=== PATIENT | male | born 1965 | race Caucasian/White ===

== ENCOUNTER 2016-12-19 15:57 | Emergency (ER) | payer BC ==
--- NOTE | 2016-12-19 16:09 | EDM.PDOC ---
ED HPI GENERAL MEDICAL PROBLEM - General Chief Complaint: Abdominal Pain Stated Complaint: ABDOMINAL PAIN Time Seen by Provider: 12/19/16 16:00 Source of Information: Reports: Patient, Family History Limitations: Reports: No Limitations - History of Present Illness Onset: Sudden Duration: Hour(s): (Within the past hour) Location: Reports: Head, Upper Extremity, Left, Upper Extremity, Right, Lower Extremity, Left Severity: Mild Associated Symptoms: Reports: Other (Headache). Denies: Chest Pain, Fever/ Chills, Malaise, Nausea/Vomiting, Shortness of Breath - Related Data Allergies Allergy/AdvReac Type Severity Reaction Status Date / Time adhesive tape Allergy Rash Verified 01/06/16 04:50 latex Allergy Rash Verified 12/07/14 07:47 Home Meds: Home Meds Hydrochlorothiazide 25 mg PO DAILY 12/05/14 [History] Aspirin 325 mg PO DAILY 10/03/15 [History] atorvaSTATin [Lipitor] 10 mg PO BEDTIME 01/06/16 [History] Past Medical History HEENT History: Reports: Impaired Vision Cardiovascular History: Reports: High Cholesterol, Hypertension Musculoskeletal History: Reports: Arthritis, Other (See Below) Other Musculoskeletal History: ruptured disks in lumbar - Infectious Disease History Infectious Disease History: Reports: Chicken Pox - Past Surgical History HEENT Surgical History: Reports: LASIK GI Surgical History: Reports: Colonoscopy Social & Family History - Tobacco Use Smoking Status *Q: Former Smoker Years of Tobacco use: 24 Used Tobacco, but Quit: Yes Month Tobacco Last Used: 2008 Second Hand Smoke Exposure: No - Recreational Drug Use Recreational Drug Use: No ED ROS GENERAL - Review of Systems Review Of Systems: See Below Constitutional: Denies: Fever, Chills, Malaise HEENT: Denies: Vision Change Respiratory: Denies: Shortness of Breath, Cough Cardiovascular: Denies: Chest Pain Endocrine: Denies: Fatigue GI/Abdominal: Denies: Abdominal Pain, Nausea, Vomiting Musculoskeletal: Reports: Hand Pain, Leg Pain Skin: Reports: Other (Superficial abrasions on her hands) Neurological: Reports: Headache. Denies: Confusion, Dizziness, Tingling, Difficulty Walking, Weakness Psychiatric: Reports: No Symptoms Departure - Discharge Information Referrals: Jennifer Tucker PA [Primary Care Provider] -
[2016-12-19 16:10] VITALS: BP 151/88
--- NOTE | 2016-12-19 16:32 | EDM.PDOC ---
ED HPI GENERAL MEDICAL PROBLEM - General Chief Complaint: Abdominal Pain Stated Complaint: ABDOMINAL PAIN Time Seen by Provider: 12/19/16 16:00 Source of Information: Reports: Patient History Limitations: Reports: No Limitations - History of Present Illness INITIAL COMMENTS - FREE TEXT/NARRATIVE: Andrea is a 51 year old male who presents to the ED today with c/o LLQ pain since last night. He reports frequent soft stool since that time. He denies any hematochezia, nausea, vomiting or fever. Patient has had diverticulitis in the past, last episode several months ago per patient, states this feels the same. Duration: Day(s): (1) left flank Pain Score (Numeric/FACES): 5 - Related Data Allergies Allergy/AdvReac Type Severity Reaction Status Date / Time adhesive tape Allergy Rash Verified 01/06/16 04:50 latex Allergy Rash Verified 12/07/14 07:47 Home Meds: Home Meds Hydrochlorothiazide 25 mg PO DAILY 12/05/14 [History] Aspirin 325 mg PO ASDIRECTED 10/03/15 [History] atorvaSTATin [Lipitor] 10 mg PO BEDTIME 01/06/16 [History] Past Medical History HEENT History: Reports: Impaired Vision Cardiovascular History: Reports: High Cholesterol, Hypertension Gastrointestinal History: Reports: Diverticulosis Musculoskeletal History: Reports: Arthritis, Other (See Below) Other Musculoskeletal History: ruptured disks in lumbar - Infectious Disease History Infectious Disease History: Reports: Chicken Pox - Past Surgical History HEENT Surgical History: Reports: LASIK GI Surgical History: Reports: Colonoscopy Social & Family History - Tobacco Use Smoking Status *Q: Former Smoker Years of Tobacco use: 24 Used Tobacco, but Quit: Yes Month Tobacco Last Used: 2008 Second Hand Smoke Exposure: No - Caffeine Use Caffeine Use: Reports: Coffee - Recreational Drug Use Recreational Drug Use: No ED ROS GENERAL - Review of Systems Review Of Systems: ROS reveals no pertinent complaints other than HPI. ED EXAM, GI/ABD - Physical Exam Exam: See Below Exam Limited By: No Limitations General Appearance: Alert, WD/WN, No Apparent Distress. No: Moderate Distress Head: Atraumatic Neck: Normal Inspection Respiratory/Chest: No Respiratory Distress, Lungs Clear Cardiovascular: Normal Peripheral Pulses, Regular Rate, Rhythm, No Murmur GI/Abdominal Exam: Normal Bowel Sounds, Soft, Tender (LLQ only) Rectal (Males) Exam: Deferred Extremities: Normal Inspection Neurological: Alert, Oriented, CN II-XII Intact Psychiatric: Normal Affect, Normal Mood Skin Exam: Warm, Dry, Intact Course - Vital Signs Last Recorded V/S: Last Vital Signs Temp 36.8 C 12/19/16 16:08 Pulse 85 12/19/16 16:08 Resp 15 12/19/16 16:08 BP 151/88 H 12/19/16 16:08 Pulse Ox 96 12/19/16 16:08 Andrea is a 52-year-old male who presents to the emergency department today with complaints of left lower quadrant pain since yesterday. Patient has a history of diverticulitis, he reports his symptoms are similar to prior episodes. Patient on exam here is tender to left lower quadrant, his remaining exam is unremarkable. Patient is well-hydrated and nontoxic-appearing. Blood work was evaluated, CBC returns with a mild leukocytosis and left shift, CMP is within normal limits, lipase is normal. The patient did not want anything for pain here including Tylenol/ibuprofen or offered. Leukocytosis was consistent with diverticulitis, I do not feel that imaging is warranted today given patient 's known diverticulitis history. I will start patient on Flagyl and ciprofloxacin and have him follow up with his primary care provider in the next 1-2 weeks. Reasons to return to the emergency department were discussed in detail, hydration was encouraged, patient can take ibuprofen/Tylenol for pain as needed . Patient was agreeable to plan of care and discharged in stable condition. - Orders/Labs/Meds Labs: Laboratory Tests 12/19/16 12/19/16 Range/Units 16:30 16:30 WBC 11.3 H (4.5-11.0) K/uL RBC 5.10 (4.30-5.90) M/uL Hgb 14.8 (12.0-15.0) g/dL Hct 43.5 (40.0-54.0) % MCV 85 (80-98) fL MCH 29 (27-31) pg MCHC 34 (32-36) % Plt Count 215 (150-400) K/uL Neut % (Auto) 69 H (36-66) % Lymph % (Auto) 16 L (24-44) % [place] % (Auto) 12 H (2-6) % Eos % (Auto) 3 (2-4) % Baso % (Auto) 1 (0-1) % Sodium 139 L (140-148) mmol/L Potassium 3.7 (3.6-5.2) mmol/L Chloride 104 (100-108) mmol/L Carbon Dioxide 30 (21-32) mmol/L Anion Gap 8.7 (5.0-14.0) mmol/L BUN 18 (7-18) mg/dL Creatinine 1.1 (0.8-1.3) mg/dL Est Cr Clr Drug Dosing 78.56 mL/min Estimated GFR (MDRD) > 60 (>60) Glucose 103 (74-106) mg/dL Calcium 8.9 (8.5-10.1) mg/dL Total Bilirubin 0.3 (0.2-1.0) mg/dL AST 20 (15-37) U/L ALT 37 (12-78) U/L Alkaline Phosphatase 92 (46-116) U/L Total Protein 7.3 (6.4-8.2) g/dL Albumin 3.4 (3.4-5.0) g/dL Globulin 3.9 H (2.3-3.5) g/dL Albumin/Globulin Ratio 0.9 L (1.2-2.2) Lipase 150 (73-393) U/L Departure - Departure Time of Disposition: 17:30 Disposition: Home, Self-Care 01 Condition: Good Clinical Impression: LLQ abdominal pain - Discharge Information Instructions: Diverticulitis Referrals: Jennifer Tucker PA [Primary Care Provider] - Forms: ED Department Discharge Additional Instructions: Andrea, please take antibiotics as prescribed. I would also recommend a probiotic, Culturelle, which will help prevent stomach upset and diarrhea secondary to the antibiotics you are taking. I would take this twice daily for the next 14 days. Please make sure you're staying well-hydrated, he can take ibuprofen or Tylenol for pain as needed. If he develops any worsening symptoms please return to the emergency department, otherwise plan to follow up with your primary doctor as previously scheduled.
== END 2016-12-19 17:14 | disposition home or self-care (01) ==
LOC: JP.ED 15:57
DX: R10.32 Left lower quadrant pain (principal); I10 Essential (primary) hypertension; E78.00 Pure hypercholesterolemia, unspecified; M19.90 Unspecified osteoarthritis, unspecified site; Z98.890 Other specified postprocedural states; Z87.891 Personal history of nicotine dependence; Z79.82 Long term (current) use of aspirin; Z79.899 Other long term (current) drug therapy; Z91.09 Other allergy status, other than to drugs and biological substances; Z91.040 Latex allergy status
CPT/HCPCS: 36415; 80053; 83690; 85025; 99284

== ENCOUNTER 2017-03-30 07:08 | Day surgery (SDC) | payer BC, OTHER ==
[~2017-03-30 07:08] MED LIST: Bupivacaine 0.5% 50 ML MDV ONE; Lidocaine 1% with EPINEPHrine 1:100,000 50 ML MDV ONE
[2017-03-30] MEDS ORDERED: Rocuronium 50 MG/5 ML Vial ONE (07:28)
[2017-03-30] MEDS ORDERED: Glycopyrrolate 0.2 MG/ML 5 ML MDV ONE (07:28)
[2017-03-30] MEDS ORDERED: Neostigmine Methylsulfate 1 MG/ML 5 ML Syringe ONE (07:28)
[2017-03-30] MEDS ORDERED: fentaNYL 250 MCG/5 ML SDV ONE ×2 (07:28→09:15)
[2017-03-30] MEDS ORDERED: Ondansetron 4 MG/2 ML SDV ONE (07:28)
[2017-03-30] MEDS ORDERED: Succinylcholine 200 MG/10 ML MDV ONE (07:28)
[2017-03-30] MEDS ORDERED: Dexamethasone 4 MG/ML SDV ONE (07:28)
[2017-03-30] MEDS ORDERED: Propofol 200 MG/20 ML SDV ONE (07:28)
[2017-03-30] MEDS ORDERED: Sodium Chloride 0.9% 1,000 ML IV SCH (07:30)
[2017-03-30] MEDS ORDERED: metroNIDAZOLE/Normal Saline 500 MG in Premix Bag 1 BAG IV ONE (08:00)
[2017-03-30] MEDS ORDERED: ceFAZolin 2 GM in Premix Bag 1 BAG IV ONE (08:00)
[2017-03-30] MEDS ORDERED: Ketorolac 60 MG/2 ML SDV ONE (09:26)
[2017-03-30] MEDS ORDERED: Morphine 2 MG/ML Syringe IVPUSH PRN (11:36)
[2017-03-30] MEDS ORDERED: hydrOXYzine HCl 100 MG/2 ML SDV IM ONE (11:45)
[2017-03-30 14:23] VITALS: BP 143/71
--- NOTE | 2017-03-31 09:32 | OR ---
DATE OF PROCEDURE: 03/30/2017 PROCEDURES PERFORMED: Bilateral total extraperitoneal hernia repairs. COMPLICATIONS: None. ASSISTANTS: None. ANESTHESIA: General/local. INDICATIONS: A pleasant 52-year-old male with bilateral inguinal hernias requiring repair. RISKS: Risks, benefits, alternatives, and limitations including, but not limited to infection, bleeding, hernia failure, recurrence, the requirement for open surgery, testicular damage including devascularization, and other risks not listed here, along with chronic pain, were explained to the patient, who wished to proceed. PREOPERATIVE DIAGNOSIS: Bilateral inguinal hernia. POSTOPERATIVE DIAGNOSIS: Bilateral inguinal hernia. PROCEDURE IN DETAIL: The patient was placed in a supine position. A midline abdominal incision was made of approximately 2 cm in size. This was carried down with electrocautery to the fascia. This was then opened with electrocautery, and the preperitoneal space was entered. The dissecting balloon (kidney-type) was introduced and subsequently insufflated. This was then held for 30 seconds. The left hernia was then addressed first. Both of these would be indirect inguinal hernias. Using a [id number] technique in the avascular plane, dissection was commenced. This was landmarked from the pubic symphysis all the way to the anterior-superior iliac crest. The hernia was deflected without difficulty. The peritoneal space was again deflected appropriately. Once dissection was completed, the area was inspected for bleeding, which none was noted. The right hernia was then addressed in same manner, same fashion, and same technique in the same sequence, using the same equipment. Once both hernias were dissected and evaluated for infection, which none was noted, the mesh was then introduced. This was introduced by rolling this into quarters and then introducing through the 10-mm port. Of note, prior to dissection, two 5-mm ports were entered under direct visualization along the midline. The mesh was introduced on the left side first, unrolled, and overlap to the pubic symphysis was noted, centering on the inguinal canal. This was then performed on the right side in the same manner, same fashion, same technique, and in the same sequence. The air was subsequently desufflated. This was under direct visualization. There was no evidence of peritoneal insufflation. The subcutaneous tissue was irrigated. The fascia was closed with 0 Vicryl. Subcutaneous tissues were approximated with 3-0 Vicryl and then closed with 4-0 Vicryl, and Dermabond was applied. Both testes were noted to be descended. The patient tolerated the procedure well. Casper Rivera MD /[id number]
== END 2017-03-30 13:30 | disposition home or self-care (01) ==
LOC: JP.SDS 07:08
PROVIDERS: ATTEND Surgery
DX: K40.20 Bilateral inguinal hernia, without obstruction or gangrene, not specified as recurrent (principal); I10 Essential (primary) hypertension; E78.00 Pure hypercholesterolemia, unspecified; Z91.040 Latex allergy status; Z91.09 Other allergy status, other than to drugs and biological substances; Z87.891 Personal history of nicotine dependence
CPT/HCPCS: 49505; C1727; C1781; J0330; J0690; J1100; J1885; J2270; J2405; J2704; J2710; J3010; J3410; J7040

== ENCOUNTER 2018-06-10 08:41 | Day surgery (SDC) | payer BC ==
[2018-06-10] MEDS ORDERED: Lactated Ringers 1,000 ML IV SCH (09:00)
[2018-06-10] MEDS ORDERED: Propofol 200 MG/20 ML SDV ONE ×2 (10:28→10:59)
[2018-06-10] MEDS ORDERED: fentaNYL 100 MCG/2 ML SDV ONE (10:29)
[2018-06-10] MEDS ORDERED: Midazolam 1 MG/ML 2 ML SDV ONE (10:29)
[2018-06-10 12:41] VITALS: BP 136/94
--- NOTE | 2018-06-13 07:38 | OR ---
DATE OF PROCEDURE: 06/10/2018 PREOPERATIVE DIAGNOSIS: History of colon polyps. POSTOPERATIVE DIAGNOSES: Diverticulosis; 2 small colon polyps, one at transverse colon and one at 20 cm from the anal verge; history of colon polyps. PROCEDURE PERFORMED: Colonoscopy to the cecum with biopsy resection of 2 small colon polyps, transverse colon and 20 cm from the anal verge. SURGEON: Baldemar Fernandez MD ANESTHESIA: IV anesthesia with monitored anesthesia care. INDICATION: This 53-year-old white male is referred for a colonoscopy. He has history of colon polyps. His last colonoscopic exam he says was done 3 years ago. I counseled him for the procedure, including risks and alternatives, and he gave his informed consent to proceed. DESCRIPTION OF PROCEDURE: The patient was placed in the left lateral decubitus position. IV anesthesia was administered by the Anesthesia Service. Time-out was held. A rectal exam was performed, which was unremarkable. The flexible video Olympus colonoscope was introduced through his anus, up his rectum, and out his colon all the way to the cecum. En route, at 20 cm from the anal verge, we saw a small polyp which was removed with a few bites of the biopsy forceps. Additionally, en route in the sigmoid and left colon areas, we saw multiple diverticula. There was no bleeding or inflammation associated with them. Once the cecum was reached, the scope was slowly withdrawn, examining the mucosa throughout. In the transverse colon, we saw another small polyp which was removed with the biopsy forceps. No other mucosal abnormalities other than the previously mentioned diverticula were noted. The scope was retroflexed in the rectum with the distal rectum appearing unremarkable. The scope was straightened and removed. He tolerated the procedure well. Baldemar Fernandez MD /[id number] MTDD
== END 2018-06-10 12:43 | disposition home or self-care (01) ==
LOC: JP.SDS 08:41
PROVIDERS: ATTEND Surgery
DX: Z12.11 Encounter for screening for malignant neoplasm of colon (principal); D12.3 Benign neoplasm of transverse colon; K63.5 Polyp of colon; K57.30 Diverticulosis of large intestine without perforation or abscess without bleeding; K21.9 Gastro-esophageal reflux disease without esophagitis; I10 Essential (primary) hypertension; Z86.010 Personal history of colon polyps; Z91.040 Latex allergy status; Z91.048 Other nonmedicinal substance allergy status
CPT/HCPCS: 45380; 88305; J2250; J2704; J3010; J7120

== ENCOUNTER 2021-09-12 06:34 | Day surgery (SDC) | payer BC ==
[2021-09-12] MEDS ORDERED: Lactated Ringers 1,000 ML IV SCH (07:00)
[2021-09-12] MEDS ORDERED: Propofol 200 MG/20 ML SDV ONE (07:27)
[2021-09-12] MEDS ORDERED: Midazolam 1 MG/ML 2 ML SDV ONE (07:28)
[2021-09-12] MEDS ORDERED: fentaNYL 100 MCG/2 ML SDV ONE (07:28)
[2021-09-12 09:10] VITALS: BP 115/80; PULSE 74
== END 2021-09-12 09:13 | disposition home or self-care (01) ==
LOC: JP.SDS 06:34
PROVIDERS: ATTEND Surgery
DX: Z12.11 Encounter for screening for malignant neoplasm of colon (principal); K64.8 Other hemorrhoids; K63.5 Polyp of colon; I10 Essential (primary) hypertension; E78.1 Pure hyperglyceridemia; K21.9 Gastro-esophageal reflux disease without esophagitis; Z98.890 Other specified postprocedural states; Z79.899 Other long term (current) drug therapy; Z87.891 Personal history of nicotine dependence; Z01.812 Encounter for preprocedural laboratory examination; Z20.822 Contact with and (suspected) exposure to COVID-19
CPT/HCPCS: 88305; J2250; J2704; J3010; J7120; U0002